=== PATIENT | female | born 1945 | race Caucasian/White ===

== ENCOUNTER 2021-08-30 14:56 | Inpatient (IN) | payer BC ==
[~2021-08-30] VITALS: Ht 160 cm; Wt 82.9 kg
[~2021-08-30 14:56] MED LIST: ATE50T PO; BACL-63 PO; FLUO20CA19 PO; LEV50T PO; MEC25T PO; MELO1TAB56 PO; OMEP20CA74 PO; PRAV20TA3 PO; TRAM-297 PO
[2021-08-30] MEDS ORDERED: SODIUM CHLORIDE 0.9% 1,000 ML IVB ONE (15:15)
[2021-08-30 16:38] LABS: Basophils # (auto) 0 10 ^3/uL (0-0.2); Basophils % (auto) 0.5 % (0.0-2.0); Eosinophils # (auto) 0 10 ^3/uL (0-0.8); Eosinophils % (auto) 0.1 % (0.0-7.0); Hematocrit 42.6 % (36.0-46.0); Hemoglobin 14.3 g/dL (12.2-16.2); Lymphocytes # (auto) 0.7 10 ^3/uL (0.4-5.4); Lymphocytes % (auto) 15.2 % (10.0-50.0); Mean Corpuscular Hemoglobin 33.4 pg (28.0-32.0); Mean Corpuscular Hgb Conc. 33.6 g/dL (32.0-36.0); Mean Corpuscular Volume 99.3 fL (80.0-100.0); Monocytes # (auto) 0.5 10 ^3/uL (0-1.3); Monocytes % (auto) 12.6 % (0.0-12.0); Neutrophils # (auto) 3.1 10 ^3/uL (1.6-8.6); Neutrophils % (auto) 71.6 % (37.0-80.0); Nucleated Red Blood Cells % 0.4 %; Red Blood Cells 4.29 10^6/uL (4.0-5.20); Red Cell Distribution Width 13.5 % (11.8-14.3); White Blood Cell 4.3 10^3/uL (4.4-10.8)
[2021-08-30 16:53] LABS: Acetaminophen < 2.0 ug/mL (10-30); Salicylate 2.3 mg/dL (2.8-20.0)
[2021-08-30 16:54] LABS: Alanine Aminotransferase 47 U/L (13-56); Albumin 2.5 g/dL (3.4-5.0); Anion Gap 13 (5-15); Blood Alcohol < 3.0 mg/dL (0-5); Blood Urea Nitrogen 33 mg/dL (7-18); Carbon Dioxide 19 mmol/L (21-32); Chloride 110 mmol/L (98-107); Glucose 100 mg/dL (74-106); Magnesium 2.5 mg/dL (1.6-2.6); Potassium 3.7 mmol/L (3.5-5.1); Sodium 142 mmol/L (136-145)
[2021-08-30 16:56] LABS: Lactic Acid w/Reflex 7.4 mmol/L (0.4-2.0)
[2021-08-30 16:57] LABS: Alkaline Phosphatase 80 U/L (45-117); Aspartate Aminotransferase 87 U/L (15-37); BUN/Creatinine Ratio 13.4; Bilirubin, Total 0.5 mg/dL (0.2-1.0); GFR African American 24 mL/min; GFR Non-African American 20 mL/min; Total Protein 5.4 g/dL (6.4-8.2)
[2021-08-30 17:38] LABS: INR 1.16 (0.9-1.15); Partial Thromboplastin Time 26.8 sec (23.6-33.0)
[2021-08-30] MEDS ORDERED: cefTRIAXone 1GM/50ML D5W 50 ML IV ONE (18:00)
[2021-08-30] MEDS ORDERED: SODIUM CHLORIDE 0.9% 1,000 ML IV ONE ×2 (18:00)
[2021-08-30] MEDS ORDERED: AZITHROMYCIN 500MG/ 250ML 250 ML IV ONE (18:00)
[2021-08-31 00:07] LABS: Urine Amorphous Crystal FEW /hpf (None Seen); Urine Bacteria FEW /hpf (None Seen); Urine Blood 3+ /uL (Negative); Urine Hyaline Cast FEW /lpf (0 - 2); Urine Mucus FEW (None Seen); Urine Specific Gravity 1.011 (1.001-1.035); Urine WBC 4 /hpf (0 - 5)
[2021-08-31 00:09] LABS: Alcohol, Urine < 3.0 mg/dL (0-10); Amphetamine Screen, Urine NEGATIVE (NEGATIVE); Barbiturate Scree,Urine NEGATIVE (NEGATIVE); Benzodiazephine Screen, Urine NEGATIVE (NEGATIVE); Cannabinoid Screen, Urine NEGATIVE (NEGATIVE); Cocaine Screen, Urine NEGATIVE (NEGATIVE); Opiate Scree,Urine NEGATIVE (NEGATIVE); Phencyclidine Screen, Urine NEGATIVE (NEGATIVE)
[2021-08-31] MEDS ORDERED: MORPHINE SULFATE INJ 2 MG/ml SYRG IV PRN (00:45)
[2021-08-31] MEDS ORDERED: hydrALAZINE HCL 20 MG/ML VL IV PRN (00:45)
[2021-08-31] MEDS ORDERED: ONDANSETRON HCL 4 MG/2 ML VIAL IV PRN (00:45)
[2021-08-31] MEDS: SODIUM CHLORIDE 0.9% 1,000 ML IV SCH ×3 (01:48→19:09)
[2021-08-31 02:30] LABS: Lactic Acid w/Reflex 4.2 mmol/L (0.4-2.0)
[2021-08-31] MEDS ORDERED: VANCOMYCIN 1GM/250ML 250 ML IV ONE (06:15)
[2021-08-31] MEDS: FAMOTIDINE (10MG/ML) 2ML VL IV SCH ×2 (09:50→22:47)
[2021-08-31] MEDS ORDERED: cefTRIAXone 1GM/50ML D5W 50 ML IV SCH (10:00)
[2021-08-31 10:58] LABS: Calcium 7.7 mg/dL (8.5-10.1)
[2021-08-31 11:02] LABS: BUN/Creatinine Ratio 19.7
[2021-08-31 11:05] LABS: Folate (Folic Acid) 7.68 ng/mL (5.38-24)
[2021-08-31] MEDS ORDERED: FUROSEMIDE 40 MG/4 ML VIAL IV ONE (11:45)
[2021-08-31] MEDS ORDERED: FUROSEMIDE 20 MG/2 ML VIAL IV ONE (12:30)
[2021-08-31] MEDS: FOLIC ACID 1 MG, MULTIPLE VITAMIN 10 ML, MAGNESIUM SULF SDV 50% 8 MEQ, THIAMINE INJ 100... INJ SCH ×5 (12:58)
[2021-08-31] MEDS ORDERED: cefTRIAXone 1GM/50ML D5W 50 ML IV ONE (15:30)
[2021-08-31] MEDS ORDERED: metroNIDAZOLE 500MG/100ML 100 ML IV ONE (15:45)
[2021-08-31 22:00] VITALS: BP 137/91
[2021-08-31] MEDS: metroNIDAZOLE 500MG/100ML 100 ML IV SCH (22:47)
[2021-09-01] VITALS (7 sets, daily range): BP systolic 107–160; BP diastolic 67–93
[2021-09-01] MEDS: metroNIDAZOLE 500MG/100ML 100 ML IV SCH ×3 (06:03→21:29)
[2021-09-01] MEDS: SODIUM CHLORIDE 0.9% 1,000 ML IV SCH (06:04)
[2021-09-01] MEDS ORDERED: VANCOMYCIN 1GM/250ML 250 ML IV SCH (07:00)
[2021-09-01 07:35] LABS: Hematocrit 40.9 % (36.0-46.0); Hemoglobin 13.9 g/dL (12.2-16.2); Mean Corpuscular Hemoglobin 32.6 pg (28.0-32.0); Mean Corpuscular Hgb Conc. 34.1 g/dL (32.0-36.0); Mean Corpuscular Volume 95.8 fL (80.0-100.0); Red Blood Cells 4.27 10^6/uL (4.0-5.20); Red Cell Distribution Width 14.1 % (11.8-14.3); White Blood Cell 4.7 10^3/uL (4.4-10.8)
[2021-09-01 07:56] LABS: BUN/Creatinine Ratio 25.6; Calcium 7.8 mg/dL (8.5-10.1); Lactic Acid w/Reflex 2.3 mmol/L (0.4-2.0); Potassium 3.7 mmol/L (3.5-5.1)
[2021-09-01 07:58] LABS: Basophils % (manual) 0 (0.0-2.0); Blast Cells 0; Eosinophils % (manual) 0 (0-7); Myelocytes % 0; Promyelocytes % 0; Reactive Lymphocytes 0
[2021-09-01] MEDS: FAMOTIDINE (10MG/ML) 2ML VL IV SCH (09:49)
[2021-09-01] MEDS: CEFTRIAXONE SODIUM 2 GM in D5W 5% 50 ML IV SCH (09:50)
[2021-09-01 10:24] LABS: Band Neutrophils % (manual) 7; Lymphocytes % (manual) 2 (10.0-50.0); Metamyelocytes % 1; Monocytes % (manual) 20 (0-12)
[2021-09-01] MEDS ORDERED: SOD CHL 0.45% 1,000 ML IV SCH (11:30)
[2021-09-01] MEDS: FOLIC ACID 1 MG, MULTIPLE VITAMIN 10 ML, MAGNESIUM SULF SDV 50% 8 MEQ, THIAMINE INJ 100... INJ SCH ×5 (13:49)
[2021-09-01] MEDS: SUCRALFATE 1 GM/10 ML ORAL SUSP PO SCH ×2 (17:32→21:29)
[2021-09-01] MEDS ORDERED: FUROSEMIDE 20 MG/2 ML VIAL IV ONE (21:00)
[2021-09-02] MEDS: ALBUTEROL SULF 2.5 MG/0.5ML(0.5%) NEB SOLN NEB PRN (04:35)
[2021-09-02 05:02] VITALS: BP 121/89
[2021-09-02] MEDS: metroNIDAZOLE 500MG/100ML 100 ML IV SCH ×3 (05:33→21:19)
[2021-09-02 06:14] LABS: Red Cell Distribution Width 14.1 % (11.8-14.3); White Blood Cell 5.3 10^3/uL (4.4-10.8)
[2021-09-02 06:17] LABS: Hematocrit 36.6 % (36.0-46.0); Hemoglobin 12.8 g/dL (12.2-16.2); Mean Corpuscular Hemoglobin 33.7 pg (28.0-32.0); Mean Corpuscular Volume 96.3 fL (80.0-100.0); Red Blood Cells 3.81 10^6/uL (4.0-5.20)
[2021-09-02 06:25] LABS: Potassium 3.5 mmol/L (3.5-5.1)
[2021-09-02 06:32] LABS: BUN/Creatinine Ratio 27.1; Calcium 8.2 mg/dL (8.5-10.1)
[2021-09-02] MEDS: SUCRALFATE 1 GM/10 ML ORAL SUSP PO SCH ×4 (06:34→21:19)
[2021-09-02 06:37] LABS: Basophils % (manual) 0 (0.0-2.0); Blast Cells 0; Eosinophils % (manual) 0 (0-7); Metamyelocytes % 0; Myelocytes % 0; Promyelocytes % 0; Reactive Lymphocytes 0
[2021-09-02 08:30] VITALS: BP 115/84
[2021-09-02] MEDS: CEFTRIAXONE SODIUM 2 GM in D5W 5% 50 ML IV SCH (09:31)
[2021-09-02] MEDS: PANTOPRAZOLE 40 MG TAB PO SCH (09:32)
[2021-09-02] MEDS: FOLIC ACID 1 MG TAB PO SCH (09:32)
[2021-09-02] MEDS: THIAMINE HCL 100 MG TAB PO SCH (09:32)
[2021-09-02 09:38] LABS: Band Neutrophils % (manual) 12; Lymphocytes % (manual) 5 (10.0-50.0); Monocytes % (manual) 1 (0-12)
[2021-09-02] MEDS ORDERED: SOD CHL 0.45% 1,000 ML IV SCH (09:45)
[2021-09-02 12:59] VITALS: BP 115/75
[2021-09-02] MEDS: D5W 5% 1,000 ML IV SCH (15:09)
[2021-09-02 16:59] VITALS: BP 103/75
[2021-09-02 21:19] VITALS: BP 112/77
[2021-09-03] MEDS: D5W 5% 1,000 ML IV SCH ×3 (04:46→21:38)
[2021-09-03 04:53] VITALS: BP 110/82
[2021-09-03] MEDS: metroNIDAZOLE 500MG/100ML 100 ML IV SCH ×3 (05:36→21:38)
[2021-09-03] MEDS: SUCRALFATE 1 GM/10 ML ORAL SUSP PO SCH ×4 (05:37→21:38)
[2021-09-03 08:23] LABS: Basophils # (auto) 0 10 ^3/uL (0-0.2); Basophils % (auto) 0.7 % (0.0-2.0); Eosinophils # (auto) 0.2 10 ^3/uL (0-0.8); Eosinophils % (auto) 3.6 % (0.0-7.0); Hematocrit 37.7 % (36.0-46.0); Hemoglobin 12.8 g/dL (12.2-16.2); Lymphocytes # (auto) 0.2 10 ^3/uL (0.4-5.4); Lymphocytes % (auto) 3.2 % (10.0-50.0); Mean Corpuscular Hemoglobin 32.6 pg (28.0-32.0); Mean Corpuscular Hgb Conc. 33.9 g/dL (32.0-36.0); Mean Corpuscular Volume 96.4 fL (80.0-100.0); Monocytes # (auto) 0.2 10 ^3/uL (0-1.3); Monocytes % (auto) 2.9 % (0.0-12.0); Neutrophils # (auto) 5.5 10 ^3/uL (1.6-8.6); Neutrophils % (auto) 89.6 % (37.0-80.0); Nucleated Red Blood Cells % 0.1 %; Red Blood Cells 3.91 10^6/uL (4.0-5.20); Red Cell Distribution Width 14.8 % (11.8-14.3); White Blood Cell 6.2 10^3/uL (4.4-10.8)
[2021-09-03 08:31] LABS: Calcium 8.2 mg/dL (8.5-10.1); Potassium 4.1 mmol/L (3.5-5.1)
[2021-09-03 09:00] VITALS: BP 122/71
[2021-09-03] MEDS: ALBUTEROL SULF 2.5 MG/0.5ML(0.5%) NEB SOLN NEB PRN (09:20)
[2021-09-03] MEDS: CEFTRIAXONE SODIUM 2 GM in D5W 5% 50 ML IV SCH (10:41)
[2021-09-03] MEDS: FOLIC ACID 1 MG TAB PO SCH (10:42)
[2021-09-03] MEDS: PANTOPRAZOLE 40 MG TAB PO SCH (10:42)
[2021-09-03] MEDS: THIAMINE HCL 100 MG TAB PO SCH (10:42)
[2021-09-03 13:00] VITALS: BP 109/82
[2021-09-03 17:00] VITALS: BP 110/79
[2021-09-03] MEDS ORDERED: VANCOMYCIN PER PHARMACY 0 MG IV SCH (17:15)
[2021-09-03] MEDS ORDERED: VANCOMYCIN 1GM/250ML 250 ML IV ONE (18:00)
[2021-09-03 22:00] VITALS: BP 100/79
[2021-09-03 23:18] LABS: Protein, Urine 103.3 mg/dL (0.0-11.9)
[2021-09-04 05:00] VITALS: BP 98/71
[2021-09-04] MEDS: metroNIDAZOLE 500MG/100ML 100 ML IV SCH ×3 (05:54→22:26)
[2021-09-04] MEDS: SUCRALFATE 1 GM/10 ML ORAL SUSP PO SCH ×4 (05:55→22:26)
[2021-09-04] MEDS: D5W 5% 1,000 ML IV SCH ×2 (06:59→17:54)
[2021-09-04 07:15] VITALS: BP 98/71
[2021-09-04 09:00] VITALS: BP 106/80
[2021-09-04] MEDS: CEFTRIAXONE SODIUM 2 GM in D5W 5% 50 ML IV SCH (09:56)
[2021-09-04] MEDS: PANTOPRAZOLE 40 MG TAB PO SCH (09:56)
[2021-09-04] MEDS: FOLIC ACID 1 MG TAB PO SCH (09:56)
[2021-09-04] MEDS: THIAMINE HCL 100 MG TAB PO SCH (09:56)
[2021-09-04] MEDS ORDERED: VANCOMYCIN 1GM/250ML 250 ML IV ONE (11:30)
[2021-09-04 13:00] VITALS: BP 128/62
[2021-09-04 17:00] VITALS: BP 122/87
[2021-09-04 22:50] VITALS: BP 96/67
[2021-09-04] MEDS ORDERED: SODIUM CHLORIDE 0.9% 1,000 ML IV ONE (23:15)
[2021-09-04 23:56] LABS: BUN/Creatinine Ratio 32.2
[2021-09-05 00:01] LABS: Potassium 2.7 mmol/L (3.5-5.1)
[2021-09-05] MEDS ORDERED: POTASSIUM CHL 20 Meq TABLET PO ONE ×2 (00:30→08:15)
[2021-09-05] MEDS: LOPERAMIDE HCL 2 MG CAP/TAB PO PRN (01:16)
[2021-09-05 03:46] LABS: Basophils # (auto) 0 10 ^3/uL (0-0.2); Basophils % (auto) 0.1 % (0.0-2.0); Eosinophils # (auto) 0 10 ^3/uL (0-0.8); Eosinophils % (auto) 0.4 % (0.0-7.0); Hematocrit 36.4 % (36.0-46.0); Hemoglobin 12.1 g/dL (12.2-16.2); Lymphocytes # (auto) 0.4 10 ^3/uL (0.4-5.4); Lymphocytes % (auto) 5.4 % (10.0-50.0); Mean Corpuscular Hemoglobin 32.6 pg (28.0-32.0); Mean Corpuscular Hgb Conc. 33.4 g/dL (32.0-36.0); Mean Corpuscular Volume 97.6 fL (80.0-100.0); Monocytes # (auto) 0.3 10 ^3/uL (0-1.3); Monocytes % (auto) 4.7 % (0.0-12.0); Neutrophils # (auto) 6.5 10 ^3/uL (1.6-8.6); Neutrophils % (auto) 89.4 % (37.0-80.0); Nucleated Red Blood Cells % 0.1 %; Red Blood Cells 3.73 10^6/uL (4.0-5.20); Red Cell Distribution Width 13.9 % (11.8-14.3); White Blood Cell 7.3 10^3/uL (4.4-10.8)
[2021-09-05] MEDS: D5W 5% 1,000 ML IV SCH ×2 (03:50→11:58)
[2021-09-05 04:05] LABS: Albumin 1.9 g/dL (3.4-5.0); BUN/Creatinine Ratio 33.1; Calcium 7.7 mg/dL (8.5-10.1); Magnesium 1.4 mg/dL (1.6-2.6)
[2021-09-05 04:07] LABS: Bilirubin, Total 0.4 mg/dL (0.2-1.0); Total Protein 4.7 g/dL (6.4-8.2)
[2021-09-05 04:14] LABS: Potassium 2.8 mmol/L (3.5-5.1)
[2021-09-05 04:48] VITALS: BP 130/73
[2021-09-05] MEDS: POTASSIUM CHL 20MEQ/100ML 100 ML IV SCH ×2 (05:39→07:33)
[2021-09-05] MEDS: metroNIDAZOLE 500MG/100ML 100 ML IV SCH ×3 (06:13→22:10)
[2021-09-05] MEDS: SUCRALFATE 1 GM/10 ML ORAL SUSP PO SCH ×4 (07:03→22:10)
[2021-09-05 08:30] VITALS: BP 90/64
[2021-09-05] MEDS: MAGNESIUM SULFATE 1GM/100ML 100 ML IV SCH ×2 (09:41→10:47)
[2021-09-05] MEDS: FOLIC ACID 1 MG TAB PO SCH (09:41)
[2021-09-05] MEDS: THIAMINE HCL 100 MG TAB PO SCH (09:41)
[2021-09-05] MEDS: PANTOPRAZOLE 40 MG TAB PO SCH (09:42)
[2021-09-05] MEDS: CHOLESTYRAMINE 4 GM POWDER PO SCH (09:42)
[2021-09-05] MEDS ORDERED: POTASSIUM CHL 20MEQ/100ML 100 ML IV ONE (10:00)
[2021-09-05] MEDS: CEFTRIAXONE SODIUM 2 GM in D5W 5% 50 ML IV SCH (11:21)
[2021-09-05] MEDS ORDERED: POTASSIUM CHL 20MEQ/100ML 100 ML IV SCH (11:30)
[2021-09-05 12:30] VITALS: BP 121/88
[2021-09-05] MEDS ORDERED: VANCOMYCIN 1GM/250ML 250 ML IV SCH (14:00)
[2021-09-05 14:24] LABS: Basophils # (auto) 0 10 ^3/uL (0-0.2); Basophils % (auto) 0.3 % (0.0-2.0); Eosinophils # (auto) 0 10 ^3/uL (0-0.8); Eosinophils % (auto) 0.3 % (0.0-7.0); Hematocrit 38.2 % (36.0-46.0); Hemoglobin 12.9 g/dL (12.2-16.2); Lymphocytes # (auto) 0.5 10 ^3/uL (0.4-5.4); Mean Corpuscular Hgb Conc. 33.7 g/dL (32.0-36.0); Mean Corpuscular Volume 97.8 fL (80.0-100.0); Monocytes # (auto) 0.5 10 ^3/uL (0-1.3); Monocytes % (auto) 5.8 % (0.0-12.0); Neutrophils # (auto) 7.1 10 ^3/uL (1.6-8.6); Neutrophils % (auto) 87.6 % (37.0-80.0); Nucleated Red Blood Cells % 0.1 %; Red Cell Distribution Width 14.1 % (11.8-14.3); White Blood Cell 8.1 10^3/uL (4.4-10.8)
[2021-09-05 14:38] LABS: BUN/Creatinine Ratio 31.7; Calcium 8.1 mg/dL (8.5-10.1); Magnesium 2.3 mg/dL (1.6-2.6); Potassium 4.4 mmol/L (3.5-5.1)
[2021-09-05 17:00] VITALS: BP 90/48
[2021-09-05] MEDS ORDERED: LEVALBUTEROL HCL 1.25 MG/3 ML NEB NEB PRN (20:45)
[2021-09-05 22:00] VITALS: BP 101/73
[2021-09-05] MEDS ORDERED: LEVALBUTEROL HCL 1.25 MG/3 ML NEB ONE (22:34)
[2021-09-06] MEDS: D5W 5% 1,000 ML IV SCH ×2 (00:49→09:18)
[2021-09-06] MEDS ORDERED: AMIODARONE HCL 150 MG in D5W 5% 100 ML IV ONE (01:15)
[2021-09-06] MEDS ORDERED: AMIODARONE 450mg/250ml AE 250 ML IV ONE (01:17)
[2021-09-06] MEDS ORDERED: AMIODARONE HCL (50 MG/ ML) 3 ML VIAL IV ONE (01:29)
[2021-09-06] MEDS ORDERED: AMIODARONE 450mg/250ml AE 250 ML IV SCH (01:30)
[2021-09-06 01:49] VITALS: BP 115/67
[2021-09-06 05:57] LABS: Basophils # (auto) 0 10 ^3/uL (0-0.2); Basophils % (auto) 0.1 % (0.0-2.0); Eosinophils # (auto) 0.1 10 ^3/uL (0-0.8); Eosinophils % (auto) 0.5 % (0.0-7.0); Hematocrit 37.5 % (36.0-46.0); Hemoglobin 12.7 g/dL (12.2-16.2); Lymphocytes # (auto) 0.5 10 ^3/uL (0.4-5.4); Lymphocytes % (auto) 5.4 % (10.0-50.0); Mean Corpuscular Hemoglobin 33.2 pg (28.0-32.0); Mean Corpuscular Volume 97.6 fL (80.0-100.0); Monocytes # (auto) 0.6 10 ^3/uL (0-1.3); Neutrophils # (auto) 8.7 10 ^3/uL (1.6-8.6); Nucleated Red Blood Cells % 0.1 %; Red Blood Cells 3.84 10^6/uL (4.0-5.20); Red Cell Distribution Width 14.2 % (11.8-14.3); White Blood Cell 9.9 10^3/uL (4.4-10.8)
[2021-09-06 06:16] LABS: BUN/Creatinine Ratio 26.5; Calcium 8.1 mg/dL (8.5-10.1); Potassium 4.1 mmol/L (3.5-5.1)
[2021-09-06] MEDS: metroNIDAZOLE 500MG/100ML 100 ML IV SCH (06:21)
[2021-09-06] MEDS: SUCRALFATE 1 GM/10 ML ORAL SUSP PO SCH ×4 (06:30→22:00)
[2021-09-06] MEDS ORDERED: LORazepam 2MG/ML-1ML VIAL IV PRN (08:45)
[2021-09-06 09:00] VITALS: BP 115/53
[2021-09-06] MEDS: THIAMINE HCL 100 MG TAB PO SCH (09:17)
[2021-09-06] MEDS: CEFTRIAXONE SODIUM 2 GM in D5W 5% 50 ML IV SCH (09:17)
[2021-09-06] MEDS: PANTOPRAZOLE 40 MG TAB PO SCH (09:18)
[2021-09-06] MEDS: FOLIC ACID 1 MG TAB PO SCH (09:18)
[2021-09-06] MEDS: AMIODARONE 450mg/250ml AE 250 ML IV SCH ×2 (09:18→22:30)
[2021-09-06 13:00] VITALS: BP 114/93
[2021-09-06] MEDS: metroNIDAZOLE 500 MG TAB PO SCH ×2 (14:02→22:00)
[2021-09-06] MEDS: CHOLESTYRAMINE 4 GM POWDER PO SCH (14:02)
[2021-09-06] MEDS: SODIUM BICARBONATE 50ML VIAL 75 ML in D5W 5% 1,000 ML IV SCH ×2 (15:07→22:00)
[2021-09-06] MEDS: PENICILLIN G POTASSIUM 3,000,000 UNITS in D5W 5% 50 ML IV SCH ×3 (15:08→22:00)
[2021-09-06 17:00] VITALS: BP 118/91
[2021-09-06 22:00] VITALS: BP 104/71
[2021-09-07] MEDS: PENICILLIN G POTASSIUM 3,000,000 UNITS in D5W 5% 50 ML IV SCH ×4 (01:22→16:09)
[2021-09-07 04:46] VITALS: BP 101/54
[2021-09-07] MEDS: metroNIDAZOLE 500 MG TAB PO SCH ×2 (06:05→16:09)
[2021-09-07] MEDS: SUCRALFATE 1 GM/10 ML ORAL SUSP PO SCH ×3 (06:06→17:00)
[2021-09-07 06:52] LABS: Basophils # (auto) 0.1 10 ^3/uL (0-0.2); Basophils % (auto) 1.2 % (0.0-2.0); Eosinophils # (auto) 0 10 ^3/uL (0-0.8); Eosinophils % (auto) 0.4 % (0.0-7.0); Hematocrit 38.8 % (36.0-46.0); Hemoglobin 12.7 g/dL (12.2-16.2); Lymphocytes # (auto) 0.4 10 ^3/uL (0.4-5.4); Lymphocytes % (auto) 4.5 % (10.0-50.0); Mean Corpuscular Hemoglobin 32.4 pg (28.0-32.0); Mean Corpuscular Hgb Conc. 32.7 g/dL (32.0-36.0); Mean Corpuscular Volume 99.2 fL (80.0-100.0); Monocytes # (auto) 0.6 10 ^3/uL (0-1.3); Monocytes % (auto) 6.9 % (0.0-12.0); Neutrophils # (auto) 7.7 10 ^3/uL (1.6-8.6); Red Blood Cells 3.91 10^6/uL (4.0-5.20); Red Cell Distribution Width 14.3 % (11.8-14.3); White Blood Cell 8.8 10^3/uL (4.4-10.8)
[2021-09-07] MEDS: SODIUM BICARBONATE 50ML VIAL 75 ML in D5W 5% 1,000 ML IV SCH (08:00)
[2021-09-07 09:00] VITALS: BP 105/72
[2021-09-07] MEDS ORDERED: DIGOXIN (250MCG/ML) 2 ML AMPULE IV ONE (09:30)
[2021-09-07] MEDS ORDERED: AMIODARONE HCL 200 MG TAB PO SCH (10:00)
[2021-09-07] MEDS: PANTOPRAZOLE 40 MG TAB PO SCH (10:21)
[2021-09-07] MEDS: FOLIC ACID 1 MG TAB PO SCH (10:23)
[2021-09-07] MEDS: THIAMINE HCL 100 MG TAB PO SCH (10:24)
[2021-09-07] MEDS: CHOLESTYRAMINE 4 GM POWDER PO SCH (10:36)
[2021-09-07] MEDS: LOPERAMIDE HCL 2 MG CAP/TAB PO PRN ×2 (11:37→19:50)
[2021-09-07 12:59] LABS: Sodium 137 mmol/L (136-145)
[2021-09-07 13:00] LABS: Anion Gap 8 (5-15); BUN/Creatinine Ratio 22.4; Blood Urea Nitrogen 28 mg/dL (7-18); Calcium 7.7 mg/dL (8.5-10.1); Carbon Dioxide 15 mmol/L (21-32); Chloride 114 mmol/L (98-107); GFR African American 53 mL/min; GFR Non-African American 44 mL/min; Glucose 119 mg/dL (74-106); Potassium 4.6 mmol/L (3.5-5.1)
[2021-09-07 13:19] VITALS: BP 105/72
[2021-09-07] MEDS: AMIODARONE 450mg/250ml AE 250 ML IV SCH (13:30)
[2021-09-07] MEDS ORDERED: SODIUM BICARBONATE 50ML VIAL 100 ML in D5W 5% 1,000 ML IV SCH (14:30)
[2021-09-07 16:35] VITALS: BP 114/67
[2021-09-07 18:49] LABS: Cholesterol 93 mg/dL (< 200)
[2021-09-07 18:52] LABS: HDL Cholesterol 27 mg/dL (40-59); LDL Cholesterol 47 mg/dL (< 100); Triglycerides 108 mg/dL (< 150)
[2021-09-07] MEDS ORDERED: PENICILLIN G POTASSIUM 3,000,000 UNITS in D5W 5% 50 ML IV SCH (20:00)
[2021-09-07 20:30] VITALS: BP 88/53
[2021-09-07 20:40] VITALS: BP 107/72
[2021-09-07] MEDS ORDERED: ATORVASTATIN 20 MG TAB PO SCH (22:00)
[2021-09-07] MEDS ORDERED: NYSTATIN TOPICAL POWDER 15GM TOP SCH (22:00)
[2021-09-08] MEDS ORDERED: ASPirin 81 mg TAB PO SCH (10:00)
== END 2021-09-07 21:00 | disposition hospice, home (50) | DRG 871 ==
LOC: ER 14:56 → EDBD 14:56 → TELE 08-31 00:37 → TELE-CENTR 08-31 20:31
PROVIDERS: ADMIT Nurse Practitioner Family; ATTEND Nurse Practitioner Family
PROC: 05HB33Z Insertion of Infusion Device into Right Basilic Vein, Percutaneous Approach (ICD-10-PCS; 2021-09-01)
PROC: B54MZZA Ultrasonography of Right Upper Extremity Veins, Guidance (ICD-10-PCS; 2021-09-01)
PROC: 05H933Z Insertion of Infusion Device into Right Brachial Vein, Percutaneous Approach (ICD-10-PCS; principal; 2021-09-07)
PROC: B54MZZA Ultrasonography of Right Upper Extremity Veins, Guidance (ICD-10-PCS; 2021-09-07)
DX: A41.9 Sepsis, unspecified organism (principal); G93.41 Metabolic encephalopathy; J96.01 Acute respiratory failure with hypoxia; J18.9 Pneumonia, unspecified organism; I21.4 Non-ST elevation (NSTEMI) myocardial infarction; E87.0 Hyperosmolality and hypernatremia; E87.2 Acidosis; J98.11 Atelectasis; K56.609 Unspecified intestinal obstruction, unspecified as to partial versus complete obstruction; N17.9 Acute kidney failure, unspecified; J44.0 Chronic obstructive pulmonary disease with (acute) lower respiratory infection; Z20.822 Contact with and (suspected) exposure to COVID-19; E03.9 Hypothyroidism, unspecified; E78.5 Hyperlipidemia, unspecified; E86.9 Volume depletion, unspecified; F02.80 Dementia in other diseases classified elsewhere, unspecified severity, without behavioral disturbance, psychotic disturbance, mood disturbance, and anxiety; F17.210 Nicotine dependence, cigarettes, uncomplicated; F32.A Depression, unspecified; G30.9 Alzheimer's disease, unspecified; I12.9 Hypertensive chronic kidney disease with stage 1 through stage 4 chronic kidney disease, or unspecified chronic kidney disease; N18.32 Chronic kidney disease, stage 3b; H70.91 Unspecified mastoiditis, right ear; I48.91 Unspecified atrial fibrillation; Z82.49 Family history of ischemic heart disease and other diseases of the circulatory system; Z86.14 Personal history of Methicillin resistant Staphylococcus aureus infection; Z86.73 Personal history of transient ischemic attack (TIA), and cerebral infarction without residual deficits; Z90.49 Acquired absence of other specified parts of digestive tract; Z90.710 Acquired absence of both cervix and uterus; Z72.89 Other problems related to lifestyle; E87.6 Hypokalemia
CPT/HCPCS: 36415; 36600; 70450; 70551; 71045; 71250; 74018; 74176; 76775; 80048; 80053; 80061; 80202; 80307; 80320; 80329; 81001; 82140; 82270; 82306; 82565; 82570; 82607; 82746; 82805; 83605; 83735; 83970; 84100; 84132; 84156; 84300; 84443; 84484; 85007; 85025; 85027; 85048; 85610; 85730; 87040; 87045; 87076; 87086; 87177; 87427; 87493; 93005; 93306; 93886; 94640; 95819; 96361; 96365; 97110; 97116; 97163; 97530; 99291; G0378; J0696; J3480; J3490; J7060